=== PATIENT | female | born 1960 | race Caucasian/White ===

== ENCOUNTER → 2023-09-21 15:11 | Outpatient (REF) | payer OTHER, SELFPAY | LOC: WDC 15:11 | PROVIDERS: ATTENDING PHYSICIAN Student in an Organized Health Care Education/Training Program | DX: Z12.31 Encounter for screening mammogram for malignant neoplasm of breast (principal) | CPT/HCPCS: 77063; 77067 ==

== ENCOUNTER 2023-11-06 01:24 | Emergency (ER) | payer OTHER, SELFPAY ==
[2023-11-06] VITALS (9 sets, daily range): BP systolic 89–146; BP diastolic 54–82; PULSE 64–67; BMI 22.7
--- NOTE | 2023-11-06 02:00 | ED.GENMED ---
History of Present Illness
<RAFY Espino (Lenka) - Last Filed: 11/06/23 04:49>
General
Chief Complaint: Overdose Unintentional
Source: patient and spouse ()
Exam Limitations: none
Time Seen by Provider: 11/06/23 01:55
Nursing documentation reviewed up to this point in time: agreed with
History of Present Illness
History of Present Illness:
Pt is a 63 yo female with PMHx of bradycardia and anxiety who presents to the ED per recommendation of poison control after accidental overdose on bupropion and sertraline today. Pt states she 'misorganized her pill container' and suspects she took
her Tuesday dose of medications twice today. She reports at around 1100 she took bupropion 300mg + 100mg (one delayed-release, one immediate release) and sertraline 100mg. Later this evening at 1700, she could not recall if she took her pills and
saw that the 'Tuesday slot on her pill container was still full', so she again took bupropion 300+100 and sertraline 100. At this time, she also took 2 ibuprofen 200mg for some acute knee pain. Around 1999, she developed a JACOBSON, nausea with globus
sensation, and tongue numbness. Additionally she admits to dizziness and lightheadedness, balance difficulties, blurry vision, and feeling palpitations prior to arrival. She denies dry mouth, tremors, seizure-like activity, HTN, chest pain, dyspnea,
abdominal pain or cramping.
Per , pt looks flushed, is not acting 'as sharp as usual', and he notes slowed speech.
She takes bupropion 300+100 for 'concentration'.
She takes sertraline 100mh for 'mild anxiety'.
Pt does not smoke, do drugs, or drink alcohol. She denies ingestion of illegal substances tonight. She denies alcohol intake tonight.
Denies any other daily medication use.
Past History
<RAFY Espino (Lenka) - Last Filed: 11/06/23 04:49>
Past History
ED Past Medical History: Cancer (Breast, skin), Psychiatric and Other (Colitis)
ED Past Surgical History: Appendectomy, Orthopedic and Other (Facelift, skin surgery, breast lumpectomy)
Social History
Tobacco: Former smoker
Alcohol: None
Drug: None
Personal:
Living: with family
Employment: Employed
Family History
Family History: Other (Noncontributory)
Phy Exam
<Denise Keller (Lenka) [facility] - Last Filed: 11/06/23 04:49>
General Physical Exam
General Presentation: well appearing and mild distress
General age: appears stated age
General Skin: warm and dry
General Habitus: normal
General Mental: anxious
General Hydration: appears well hydrated
Eye Exam
Eye Exam: conjunctiva normal
Cardiovascular Exam
Cardiovascular Exam: regular rate/rhythm, no edema, no gallop, no murmur and normal peripheral pulses
Pulmonary Exam
Pulmonary Exam: lungs clear, no respiratory distress, no rales, no rhonchi, no wheezing and no cough
Gastrointestinal Exam
Gastrointestinal Exam: normal bowel sounds, non tender, soft, no pulsatile mass and non distended
Palpation: generalized: Minimal tenderness (generalized minimal tenderness to all 4 quadrants)
Neurological Exam
Neurological Exam: alert, oriented x3 and speech normal (per - speech delayed)
Skin Exam
Skin Exam: normal color and warm/dry
Psychiatric Exam
Psychiatric Exam: anxious
Course
<Denise Keller (Lenka) [facility] - Last Filed: 11/06/23 04:49>
Orders/Labs/Results
Orders:
Orders
11/06/23 02:02
Acetaminophen Urgent
Alcohol Urgent
Complete Blood Count/With Diff Urgent
Comprehensive Metabolic Panel Urgent
PTT Urgent
Prothrombin Time Urgent
Salicylate Urgent
Urinalysis Reflex To Culture Urgent
Date Specimen was Collected: 11/06/23
Time Specimen was Collected: 02:00
Urine Drug Abuse Screen Urgent
Date Specimen was Collected: 11/06/23
Time Specimen was Collected: 02:00
Urine Microscopic Reflex Cult Urgent
11/06/23 02:39
EKG [Electrocardiogram (*1)] Urgent
Reason for Study: Palpitations
0.9% Sodium Chloride 1000 ml [Nss] 1,000 ml IV BOLUS
11/06/23 02:43
CT Head W/o Iv Contrast Urgent
Comment:
Reason For Exam: tongue numbness, speech delay, balance concerns
11/06/23 02:44
Visual Acuity- Treatment ONCE
11/06/23 04:10
Ondansetron Injectable [Zofran] 4 mg IV NOW STA
Abnormal Lab Results
11/06/23
02:02
RBC 3.85 L 10^6/uL
(4.20-5.40)
Hct 34.6 L %
(37.0-47.0)
MCH 31.2 H pg
(27.0-31.0)
APTT 38.3 H Sec
(23.4-35.0)
BUN 21 H mg/dl
(7-17)
Leukocyte Esterase Rfl Trace A
(Negative)
Salicylates < 1.0 L mg/dl
(2.0-20.0)
Acetaminophen < 10 L ug/ml
(10-30)
11/06/23 02:02
11/06/23 02:02
Vital Signs
Initial and Last Documented VS:
Initial Vital Signs
Temp Pulse Resp BP Pulse Ox
98 F 74 20 146/82 100
11/06/23 01:28 11/06/23 01:28 11/06/23 01:28 11/06/23 01:28 11/06/23 01:28
Last Documented Vital Signs
Temp Pulse Resp BP Pulse Ox
98 F 66 17 89/54 96
11/06/23 01:28 11/06/23 04:15 11/06/23 04:15 11/06/23 04:11 11/06/23 04:15
<Pranay Freed, - Last Filed: 11/06/23 04:42>
Orders/Labs/Results
Orders:
Orders
11/06/23 02:02
Acetaminophen Urgent
Alcohol Urgent
Complete Blood Count/With Diff Urgent
Comprehensive Metabolic Panel Urgent
PTT Urgent
Prothrombin Time Urgent
Salicylate Urgent
Urinalysis Reflex To Culture Urgent
Date Specimen was Collected: 11/06/23
Time Specimen was Collected: 02:00
Urine Drug Abuse Screen Urgent
Date Specimen was Collected: 11/06/23
Time Specimen was Collected: 02:00
Urine Microscopic Reflex Cult Urgent
11/06/23 02:39
EKG [Electrocardiogram (*1)] Urgent
Reason for Study: Palpitations
0.9% Sodium Chloride 1000 ml [Nss] 1,000 ml IV BOLUS
11/06/23 02:43
CT Head W/o Iv Contrast Urgent
Comment:
Reason For Exam: tongue numbness, speech delay, balance concerns
11/06/23 02:44
Visual Acuity- Treatment ONCE
11/06/23 04:10
Ondansetron Injectable [Zofran] 4 mg IV NOW STA
Abnormal Lab Results
11/06/23
02:02
RBC 3.85 L 10^6/uL
(4.20-5.40)
Hct 34.6 L %
(37.0-47.0)
MCH 31.2 H pg
(27.0-31.0)
APTT 38.3 H Sec
(23.4-35.0)
BUN 21 H mg/dl
(7-17)
Leukocyte Esterase Rfl Trace A
(Negative)
Salicylates < 1.0 L mg/dl
(2.0-20.0)
Acetaminophen < 10 L ug/ml
(10-30)
11/06/23 02:02
11/06/23 02:02
Vital Signs
Initial and Last Documented VS:
Initial Vital Signs
Temp Pulse Resp BP Pulse Ox
98 F 74 20 146/82 100
11/06/23 01:28 11/06/23 01:28 11/06/23 01:28 11/06/23 01:28 11/06/23 01:28
Last Documented Vital Signs
Temp Pulse Resp BP Pulse Ox
98 F 66 17 89/54 96
11/06/23 01:28 11/06/23 04:15 11/06/23 04:15 11/06/23 04:11 11/06/23 04:15
<RAFY Espino (Lenka) - Last Filed: 11/06/23 04:49>
MDM/Problems Addressed
Differential Diagnosis Includes:
63 yo female with PMHx of bradycardia and anxiety presents to the ED per recommendation of poison control after accidental overdose on bupropion and sertraline today.
Took double her dose of bupropion 300 + 100 twice today and sertraline 100 twice today as well, at 1100 and 1700
Additionally took total 400mg ibuprofen at 1700
Developed a JACOBSON, nausea with globus sensation, and tongue numbness, dizziness and lightheadedness, balance difficulties, blurry vision, and feeling palpitations prior to arrival.
She denies dry mouth, tremors, seizure-like activity, HTN, chest pain, dyspnea, abdominal pain or cramping.
Per , pt looks flushed, is not acting 'as sharp as usual', and he notes slowed speech.
Pt does not smoke, do drugs, or drink alcohol. She denies ingestion of illegal substances tonight. She denies alcohol intake tonight.
PE: benign, normal S1/S2, sensation intact
DDx: bupropion overdose vs CVA vs dehydration vs anemia
Labs - Hemoglobin 12.o, RBC 3.85
BUN - 21 mg/dL
Negative drug screen
Head CT noncontrast - no acute intracranial abnormality. no acute territorial infarct, hemorrhage, mass effect, or midline shift (official read from 11/06 415)
EKG - NSR, LAD
Reassessment 044 - pt with improved nausea after zofran. Pt hypotensive, she states that the current read 89/54 is around her normal.
<RAFY Espino (Lenka) - Last Filed: 11/06/23 04:49>
*Critical Care Note
Total Time (30-74mins, 75-104mins- exclusive of procedures): Not Applicable
ED Attending Note
<RAFY Espino (Lenka) - Last Filed: 11/06/23 04:49>
-
Portions of this chart may have been created with voice recognition software.� Occasional wrong word or��sound alike� substitutions may have occurred due to the inherent limitations of voice recognition software.
<Pranay Freed DO - Last Filed: 11/06/23 04:42>
ED Attending Note
Patient seen and examined by attending physician: Yes
I performed the substantive portion of visit, reviewed & personally made and approve the management plan that is documented in note by myself or NIKO.: Yes
ED Attending Note:
Pleasant 63-year-old female presents after unintentional overdose. She took 400 mg Wellbutrin at 10 AM and 4 PM. She also took Zoloft at the same time. She started feel nauseated. She did have a headache. She called poison control and looked up
on the Internet. She was concerned because her Internet source stated that she could have a seizure. Denies any seizure activity. Denies fever, denies muscle rigidity or pain. Denies respiratory issues. States that this overdose was
unintentional and completely accidental. Patient was seen in conjunction with the PA student. I have reviewed and agree with the history and treatment plan presented. On my independent physical exam, patient is awake, alert, and oriented x3, no
acute distress. Heart is regular rate rhythm. Lungs are clear to auscultation bilaterally without wheezes rales or rhonchi present. Mentation is intact. No slurred speech. Conversation is normal.
Patient wishes to be discharged home. She will be discharged into the care of her . Discussed return to ER instructions with patient and . They are in agreement. I feel they have good understanding of discharge instructions.
Patient will hold doses of both medications today.
Discharge Plan
Departure
Patient Disposition: Home (Routine Discharge)
Date of Disposition: 11/06/23
Time of Disposition: 04:41
Patient with high blood pressure during this ER visit?: No
Condition: Good
Discharge Problem:
Accidental overdose
Instructions: Accidental Overdose (DC)
Prescriptions:
No Action
sertraline 100 MG tablet
125 mg PO DAILY
acetaminophen 325 MG tablet
650 mg PO Q4HPRN PRN (Reason: mild pain/JACOBSON/temp> 100.4F) 0RF
fidaxomicin [Dificid] 200 MG tablet
200 mg PO BID 0RF
Referrals:
Katharine Mortensen MD [Family Provider] -
Activity Restrictions/Additional Instructions:
It was a pleasure meeting you and taking part in your care. We hope for your continued healing and wellness.
Please read discharge instructions in their entirety. However, they are for general education and may not describe your exact diagnosis at discharge. Information on your ER visit and medical conditions were discussed with you along with appropriate
follow up information...
If indicated, please take your medications as instructed and indicated on discharge paperwork.
Please schedule a follow up appointment as directed. Call to schedule an appointment
Please return to the emergency department with ANY change in, persisting, or worsening of symptoms. If any of your symptoms do not improve, or persist, or become more severe within 6-12 hours, please return to the emergency department for further
care.
Please return to the emergency department if you develop a headache, neck pain/stiffness, fever greater than 100.4F, chest pain, shortness of breath, persistent nausea, vomiting, slurred speech, difficulty walking, numbness/tingling, weakness, signs
of infection or any other symptoms that are worrisome to you.
If you have any questions or concerns please do not hesitate to call the Hospital at or E-mail me directly at [email or web address]
Interventions
Interventions:
*Risk Screen - Suicide Last Done: 11/06/23 02:34
*General Assessment Last Done: 11/06/23 02:34
*Neglect/Abuse Screening Last Done: 11/06/23 02:34
ED- Fall Risk Assessment Last Done: 11/06/23 02:34
*ED COVID-19 Vaccine History Last Done: 11/06/23 02:34
ED- Cardiac Assessment Last Done: 11/06/23 02:34
ED- Neurological Assessment Last Done: 11/06/23 02:34
ED-Psychological Assessment Last Done: 11/06/23 02:34
ED- Pulmonary Assessment Last Done: 11/06/23 02:34
Discharge Date and Time
Print Language: ROMANSH
[2023-11-06 02:27] LABS: Urine Albumin Negative (Neg - Trace); Urine Bilirubin Negative (Negative); Urine Character Clear (Clear); Urine Color Straw; Urine Glucose Negative (Negative); Urine Ketone Negative (Negative); Urine Leukocyte Trace (Negative); Urine Nitrite Negative (Negative); Urine Occult Blood Negative (Negative); Urine Urobilinogen Negative (Neg - 1+)
[2023-11-06 02:29] LABS: % Basophils 0.8 % (0-2); % Eosinophils 2.1 % (0-6); % Immature Granulocytes 0.2 % (0-0.5); % Lymphocytes 33.9 % (20.5-51.1); % Monocytes 7.4 % (1.7-9.3); % Neutrophils 55.6 % (42.2-75.2); Absolute Basophils 0.1 10^3/uL (0-0.2); Absolute Eosinophils 0.1 10^3/uL (0-0.7); Absolute Lymphocytes 2.1 10^3/uL (1.2-3.4); Absolute Monocytes 0.5 10^3/uL (0.1-0.6); Absolute Neutrophils 3.4 10^3/uL (1.4-6.5); Hematocrit 34.6 % (37.0-47.0); Mean Corp Hgb Conc. 34.7 g/dL (33.0-37.0); Mean Corpuscular Hgb 31.2 pg (27.0-31.0); Mean Corpuscular Volume 89.9 fL (81.0-99.0); Mean Platelet Volume 9.3 fL (7.4-10.4); Nucleated Red Blood Cells % 0 %; Platelet Count 201 10^3/uL (130-400); Red Blood Cell Count 3.85 10^6/uL (4.20-5.40); Red Cell Dist. Width 12.4 % (11.5-14.5); White Blood Cell Count 6.1 10^3/uL (4.8-10.8)
[2023-11-06 02:36] LABS: Amphetamines Negative (Negative); Barbiturates Negative (Negative); Benzodiazepines Negative (Negative); Buprenorphine Negative (Negative); Cocaine Negative (Negative); Methadone Negative (Negative); Methamphetamines Negative (Negative); Opiates Negative (Negative)
[2023-11-06 02:37] LABS: Marijuana Negative (Negative); Phencyclidine Negative (Negative); Tricyclic Antidepressants Negative (Negative)
[2023-11-06 02:43] LABS: ALT (SGPT) 22 U/L (0-35); AST (SGOT) 34 U/L (14-36); Acetaminophen < 10 ug/ml (10-30); Albumin 4.2 g/dl (3.5-5.0); Alkaline Phosphatase 68 U/L (38-126); Blood Urea Nitrogen 21 mg/dl (7-17); Calcium 9.2 mg/dl (8.4-10.2); Carbon Dioxide 30 mmol/L (22-30); Chloride 102 mmol/L (98-107); Estimated Creatinine Clearance 68 ml/min; Glucose 90 mg/dl (70-99); Potassium 4.1 mmol/L (3.5-5.1); Salicylate < 1.0 mg/dl (2.0-20.0); Sodium 135 mmol/L (135-145); Total Bilirubin 0.2 mg/dl (0.2-1.3); Total Protein 6.4 g/dl (6.3-8.2); eGFR > 60.00
[2023-11-06 02:44] LABS: Alcohol None Detected; PT 14.1 Sec (11.4-14.6)
[2023-11-06 02:45] LABS: APTT 38.3 Sec (23.4-35.0)
[2023-11-06 02:47] LABS: Urine Red Blood Cell 0-2 /HPF (0-2); Urine Squamous Cell 0-2 /LPF (Few)
[2023-11-06] MEDS: NSS 1000 IV (02:52)
[2023-11-06] MEDS: ZOFRAN 4 MG IV (04:18)
== END 2023-11-06 05:40 | disposition home or self-care (01) ==
LOC: EMR 01:24
PROVIDERS: EMERGENCY PHYSICIAN Student in an Organized Health Care Education/Training Program; FAMILY PHYSICIAN Student in an Organized Health Care Education/Training Program
DX: T43.291A Poisoning by other antidepressants, accidental (unintentional), initial encounter (principal); Y92.9 Unspecified place or not applicable; F41.9 Anxiety disorder, unspecified; F80.9 Developmental disorder of speech and language, unspecified; Z85.828 Personal history of other malignant neoplasm of skin; Z87.891 Personal history of nicotine dependence; Z90.49 Acquired absence of other specified parts of digestive tract
CPT/HCPCS: 99284; 96374; 96361; 70450; 80053; 80143; 80179; 80306; 81003; 81015; 82077; 85025; 85610; 85730; 93005

== ENCOUNTER → 2024-09-24 16:42 | Outpatient (REF) | payer OTHER, SELFPAY | LOC: WDC 16:42 | PROVIDERS: ATTENDING PHYSICIAN Student in an Organized Health Care Education/Training Program | DX: Z12.31 Encounter for screening mammogram for malignant neoplasm of breast (principal) | CPT/HCPCS: 77063; 77067 ==